=== PATIENT | female | born 1995 | race Caucasian/White ===

== ENCOUNTER → 2017-02-28 | Outpatient (CLI) | payer OTHER ==
--- NOTE | 2017-02-28 09:22 | RAD ---
EXAM DESCRIPTION: Knee,Left Complete CLINICAL HISTORY: PAIN IN LEFT KNEE COMPARISON: None. TECHNIQUE: 4 views FINDINGS: I see no bone joint or soft tissue abnormality. IMPRESSION: Normal left knee. Electronically signed by: Anthony Mobley MD 02/28/2017 9:21 AM CDT
--- NOTE | 2017-02-28 09:23 | RAD ---
EXAM DESCRIPTION: Pelvis CLINICAL HISTORY: PELX COMPARISON: None. TECHNIQUE: AP pelvis FINDINGS: I see no bone joint or soft tissue abnormality. IMPRESSION: Normal pelvis. Electronically signed by: Anthony Mobley MD 02/28/2017 9:22 AM CDT
== END | disposition home or self-care (01) ==
LOC: RAD 07:57
PROVIDERS: ATTEND Orthopaedic Surgery
DX: M25.562 Pain in left knee (principal); M25.552 Pain in left hip